=== PATIENT | female | born 1975 | race Two or more races ===

== ENCOUNTER 2019-07-21 07:34 | Inpatient (IN) | payer OTHER ==
[~2019-07-21] VITALS: Ht 160 cm; Wt 90.7 kg
[~2019-07-21 07:34] MED LIST: ANAPROX275 MG PO; CODE1TAB37 PO; KETO10TA2 PO; METFORMIN HCL500 MG PO; SEPTRA DS TABLE1 TAB PO
== END 2019-07-27 15:31 | disposition designated cancer center or children's hospital (05) | DRG 292 ==
LOC: ER 07:34 → MEDI 21:56 → SEC-K 21:56 → MEDI 07-22 02:00
PROVIDERS: ADMIT Internal Medicine; ATTEND Internal Medicine
PROC: B24BZZZ Ultrasonography of Heart with Aorta (ICD-10-PCS; principal; 2019-07-21)
PROC: BW21Y0Z Computerized Tomography (CT Scan) of Abdomen and Pelvis using Other Contrast, Unenhanced and Enhanced (ICD-10-PCS; 2019-07-21)
PROC: BB24ZZZ Computerized Tomography (CT Scan) of Bilateral Lungs (ICD-10-PCS; 2019-07-21)
PROC: B54DZZZ Ultrasonography of Bilateral Lower Extremity Veins (ICD-10-PCS; 2019-07-21)
PROC: 4A033R1 Measurement of Arterial Saturation, Peripheral, Percutaneous Approach (ICD-10-PCS; 2019-07-21)
PROC: BW4GZZZ Ultrasonography of Pelvic Region (ICD-10-PCS; 2019-07-23)
PROC: 4A12X4Z Monitoring of Cardiac Electrical Activity, External Approach (ICD-10-PCS; 2019-07-25)
DX: I11.0 Hypertensive heart disease with heart failure (principal); R18.8 Other ascites; J90 Pleural effusion, not elsewhere classified; J98.11 Atelectasis; I50.41 Acute combined systolic (congestive) and diastolic (congestive) heart failure; R06.02 Shortness of breath; I08.3 Combined rheumatic disorders of mitral, aortic and tricuspid valves; I87.2 Venous insufficiency (chronic) (peripheral); R05 Cough; N80.0 Endometriosis of uterus; Z03.818 Encounter for observation for suspected exposure to other biological agents ruled out

== ENCOUNTER 2019-09-02 10:28 | Emergency (ER) | payer OTHER ==
[~2019-09-02] VITALS: Ht 160 cm; Wt 90.7 kg
[2019-09-02] MEDS ORDERED: TOPROL XL25 M1 (10:41)
[2019-09-02] MEDS ORDERED: PRILOSEC OTC20 MG (10:41)
[2019-09-02] MEDS ORDERED: LASIX20 MG (10:41)
[2019-09-02] MEDS ORDERED: CORLANOR5 MG (10:42)
[2019-09-02] MEDS ORDERED: ZESTRIL2.5 MG (10:42)
== END 2019-09-02 14:25 | disposition home or self-care (01) ==
LOC: ER 10:28
DX: I50.9 Heart failure, unspecified (principal)